=== PATIENT | male | born 2000 | race Caucasian/White ===

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

== ENCOUNTER 2018-05-18 17:39 | Emergency (ER) | payer BC ==
[~2018-05-18] VITALS: Ht 170.2 cm; Wt 65.8 kg
[2018-05-18] MEDS ORDERED: ONDANSETRON ODT 4 MG TAB.RAPDIS SL ONE (18:00)
[2018-05-18] MEDS ORDERED: ONDANSETRON ODT 4 MG TAB.RAPDIS ONE (18:02)
--- NOTE | 2018-05-18 18:25 | NUR ---
Patient is resting comfortably on gurney with eyes closed, NAD.
--- NOTE | 2018-05-18 18:34 | NUR ---
Patient discharged to home in stable conditon. Written and verbal after care instructions given to patient and family. Patient and family verbalized understanding of instructions.
--- NOTE | 2018-05-18 18:35 | NUR ---
Patient and family want anti-nausea medicine prescription, Dr Munguia notified.
[2018-05-18] MEDS ORDERED: GUAIFENESIN/CODEINE 5 ML LIQUID UDC PO ONE (18:45)
[2018-05-18] MEDS ORDERED: GUAIFENESIN/CODEINE 5 ML LIQUID UDC ONE (18:52)
== END 2018-05-18 18:55 | disposition home or self-care (01) ==
LOC: ER 17:39
DX: J02.9 Acute pharyngitis, unspecified (principal)
CPT/HCPCS: 36415; 86403; 87070; 87400; A4663; Q0162

== ENCOUNTER 2021-05-04 23:48 | Emergency (ER) | payer BC ==
[~2021-05-04] VITALS: Ht 170.2 cm; Wt 68.0 kg
--- NOTE | 2021-05-05 00:04 | NUR ---
Dr Kerns into eval patient.
[2021-05-05] MEDS: OXYCODONE/APAP 5-325 MG TABLET PO ONE (00:29)
[2021-05-05] MEDS ORDERED: ERYT-135 PO (00:33)
[2021-05-05] MEDS ORDERED: OXYC-128 PO (00:33)
[2021-05-05] MEDS ORDERED: OXYCODONE/APAP 5-325 MG TABLET ONE (00:36)
--- NOTE | 2021-05-05 00:39 | NUR ---
Patient discharged to home in stable condition with sister taking patient home. Written and verbal after care instructions given. Patient verbalizes understanding of instructions. Stressed follow up or return to ER for worsening s/s.
[2021-05-05 00:40] VITALS: BP 154/82
== END 2021-05-05 00:40 | disposition home or self-care (01) ==
LOC: ER 05-05 00:17
DX: K12.1 Other forms of stomatitis (principal); K12.30 Oral mucositis (ulcerative), unspecified; I10 Essential (primary) hypertension; Z79.2 Long term (current) use of antibiotics; Z79.899 Other long term (current) drug therapy
CPT/HCPCS: A4663

== ENCOUNTER 2021-05-20 12:08 | Emergency (ER) | payer BC ==
[~2021-05-20] VITALS: Ht 170.2 cm; Wt 68.0 kg
[~2021-05-20 12:08] MED LIST: ERYT-135 PO; OXYC-128 PO
[2021-05-20 13:00] LABS: HEMATOCRIT 45.8 % (36.7-47.1); MEAN CORPUSCULAR HEMOGLOBIN 29.6 uug (23.8-33.4); MEAN CORPUSCULAR VOLUME 86.2 fL (73.0-96.2); PLATELET COUNT (AUTO) 343 K/uL (152-348)
[2021-05-20 13:07] LABS: CREATININE 0.9 mg/dL (0.6-1.3); POTASSIUM 3.9 mmol/L (3.5-5.1)
--- NOTE | 2021-05-20 13:20 | NUR ---
ER registration staff/Admitting staff Ton notified re: plan to admit
--- NOTE | 2021-05-20 13:46 | NUR ---
[email or web address] talking to patient re: plan of care
[2021-05-20] MEDS ORDERED: DILTIAZEM HCL 25 MG IV IV ONE (14:30)
[2021-05-20 15:18] VITALS: BP 129/73
[2021-05-20] MEDS ORDERED: DILTIAZEM HCL 25 MG IV ONE (15:23)
--- NOTE | 2021-05-20 15:49 | NUR ---
covid test done and sent specimen to lab
--- NOTE | 2021-05-20 16:39 | NUR ---
Patient still wants to leave AMA. Patient does not wish to proceed with medical care recommended by Dr. Breaux. Patient was given information related to possible complications, up to and including , which could occur as a result of leaving the hospital at this time. Patient and patient's mother verbalized understanding of risks involved due to leaving against medical advice. Patient signed [email or web address] [email or web address].
--- NOTE | 2021-05-20 17:09 | NUR ---
Patient left AMA. Copies of all tests' results were provided. Patient and patient's mother said that he will see a time lock expert tomorrow.
== END 2021-05-20 17:14 | disposition left against medical advice (07) ==
LOC: ER 12:08
DX: I48.91 Unspecified atrial fibrillation (principal); R07.9 Chest pain, unspecified; R42 Dizziness and giddiness; Z53.29 Procedure and treatment not carried out because of patient's decision for other reasons; Z20.822 Contact with and (suspected) exposure to COVID-19
CPT/HCPCS: 36415; 71045; 80048; 84484 ×2; 85025; 87426; 93005 ×2; 96374; 99291; J3490; A4663; J7030

== ENCOUNTER 2022-07-19 21:50 | Emergency (ER) | payer BC ==
[~2022-07-19] VITALS: Ht 170.2 cm; Wt 72.6 kg
[2022-07-19 22:07] VITALS: O2SAT 99
--- NOTE | 2022-07-19 22:11 | NUR ---
After being triaged, patient was placed back i the waiting room to wait for bed opening.
--- NOTE | 2022-07-19 23:45 | NUR ---
Patient was called to be placed in room but was not present in the waiting room or outside of ER.
--- NOTE | 2022-07-20 | NUR ---
Patient was called to be triaged but was not present in the waiting room or outside of ER.
--- NOTE | 2022-07-20 00:30 | NUR ---
Patient was called to be placed in room but was not present in the waiting room or outside of ER. Patient was triaged but not seen by ERMD
== END 2022-07-20 00:30 | disposition left against medical advice (07) ==
LOC: ER 21:50
DX: R07.81 Pleurodynia (principal); Z53.21 Procedure and treatment not carried out due to patient leaving prior to being seen by health care provider
CPT/HCPCS: A4663